=== PATIENT | male | born 1960 | race Caucasian/White ===

== ENCOUNTER 2019-09-25 18:03 | Emergency (ER) | payer MEDICARE, OTHER ==
[2019-09-25] MEDS ORDERED: predniSONE 20 MG TAB ONE (18:59)
== END 2019-09-25 19:12 | disposition home or self-care (01) ==
LOC: BURERS 18:03
DX: K12.2 Cellulitis and abscess of mouth (principal); E11.9 Type 2 diabetes mellitus without complications
CPT/HCPCS: 99284; J7512

== ENCOUNTER 2020-05-02 17:37 | Emergency (ER) | payer MEDICARE, OTHER ==
[2020-05-02 19:00] LABS: Bilirubin Negative (Negative); Blood, Urine Negative (Negative); Clarity Clear (Clear); Glucose, Urine (Dipstick) 500 mg/dL (Negative); Ketone, Urine 15 mg/dL (Negative); Leukocyte Negative (Negative); Nitrite Negative (Negative); Protein, Urine (Dipstick) Negative (Neg-Trace); Urobilinogen 0.2 mg/dL (Less than 2)
[2020-05-02 19:18] LABS: #Basophils 0.1 thou/uL (0.0-0.2); #Eosinphils 0.3 thou/uL (0.0-0.7); #Lymphocytes 2.2 thou/uL (1.20-3.40); #Monocytes 0.5 thou/uL (0.11-0.59); %Basophils 1.5 % (0.0-1.0); %Eosinophils 4.9 % (0.0-10.0); %Lymphocytes 35.5 % (21.0-51.0); %Monocytes 8.6 % (0.0-10.0); %Neutrophils 49.5 % (42.0-75.0); Hemoglobin 16.9 g/dL (14.0-18.0); Mean Corpuscular HGB CONC 33.7 g/dL (32.0-36.0); Mean Corpuscular Hemoglobin 31.3 pg (27.0-31.0); Mean Corpuscular Volume 92.8 fL (78.0-98.0); Mean Platelet Volume 8.2 fL (7.4-10.4); Platelet Count 137 thou/uL (130-400); RBC Distribution Width 12.9 % (11.5-14.5); Red Blood Cell (RBC) Count 5.41 mill/uL (4.70-6.10)
[2020-05-02 19:32] LABS: ALT (SGPT) 24 U/L (8-55); AST (SGOT) 23 U/L (5-34); Albumin 3.9 g/dL (3.4-4.8); Alkaline Phosphatase 98 U/L (40-110); Anion Gap 16 mmol/L (10-20); BUN (Urea Nitrogen) 18 mg/dL (8.4-25.7); Bilirubin, Total 0.3 mg/dL (0.2-1.2); Calc. Creatinine Clearance 0 mL/min (70-130); Calcium 8.9 mg/dL (7.8-10.44); Carbon Dioxide 24 mmol/L (23-31); Chloride 108 mmol/L (98-107); Globulin 3.5 g/dL (2.4-3.5); Glucose 266 mg/dL (80-115); Potassium 4.1 mmol/L (3.5-5.1); Protein, Total 7.4 g/dL (5.8-8.1); Sodium 144 mmol/L (136-145)
--- NOTE | 2020-05-02 19:48 | RAD ---
PORTABLE CHEST: 05/02/20 An AP portable film at 1928 is presented with no prior films available for comparison. No major infil trate or effusion was seen. The lungs are clear. It is difficult to assess the left costophrenic angl e well. There is no vascular congestion or edema. The heart size is normal. There appears to be part ial resection of the end of the left clavicle. IMPRESSION: No acute thoracic finding. POS: HOME
--- NOTE | 2020-05-02 20:02 | CT ---
CT OF THE BRAIN WITHOUT CONTRAST: 05/02/[address] was done for evaluation of headache and mental status changes. There is a history o f remote trauma with stroke. Today's exam shows extensive left frontal encephalomalacia from the prior stroke. No intracranial ble eding or extra-axial hematoma was present. there is normal ventricular sizes given the degree of atro phy present. No acute stroke, mass, bleeding, or other acute changes were seen. The visible paranasal sinuses and mastoid air cells are clear. IMPRESSION: Old left frontal stroke but no acute intracranial findings. Preliminary report called to Dr. Moore at 1937 on 05/02/20. POS: HOME
== END 2020-05-02 20:00 | disposition home or self-care (01) ==
LOC: BURERS 17:37
DX: R51.9 Headache, unspecified (principal); E11.9 Type 2 diabetes mellitus without complications
CPT/HCPCS: 36416; 70450; 71045; 80053; 81003; 83605; 84484; 85025; 93005; 36415-59

== ENCOUNTER 2020-05-17 17:07 | Emergency (ER) | payer MEDICARE | END 2020-05-17 17:37 | disposition home or self-care (01) | LOC: BURERS 17:07 | DX: B37.9 Candidiasis, unspecified (principal); E11.9 Type 2 diabetes mellitus without complications | CPT/HCPCS: 99283 ==

== ENCOUNTER 2020-05-28 14:42 | Emergency (ER) | payer MEDICARE, OTHER | END 2020-05-28 15:37 | disposition home or self-care (01) | LOC: BURERS 14:42 | DX: S49.92XA Unspecified injury of left shoulder and upper arm, initial encounter (principal); E11.9 Type 2 diabetes mellitus without complications; W01.0XXA Fall on same level from slipping, tripping and stumbling without subsequent striking against object, initial encounter | CPT/HCPCS: 70450 ==

== ENCOUNTER 2020-06-07 15:44 | Emergency (ER) | payer MEDICARE ==
[2020-06-07 16:35] LABS: #Eosinphils 0.1 thou/uL (0.0-0.7); #Lymphocytes 1.6 thou/uL (1.20-3.40); #Monocytes 0.7 thou/uL (0.11-0.59); %Basophils 0.6 % (0.0-1.0); %Eosinophils 1.9 % (0.0-10.0); %Lymphocytes 21.4 % (21.0-51.0); %Monocytes 9.2 % (0.0-10.0); %Neutrophils 66.9 % (42.0-75.0); Mean Corpuscular HGB CONC 32.6 g/dL (32.0-36.0); Mean Platelet Volume 7.7 fL (7.4-10.4); Platelet Count 91 thou/uL (130-400); RBC Distribution Width 12.4 % (11.5-14.5); Red Blood Cell (RBC) Count 5.67 mill/uL (4.70-6.10); White Blood Cell (WBC) Count 7.5 thou/uL (4.8-10.8)
[2020-06-07 16:47] LABS: Base Excess-Venous 0.8 mmol/L (-2.0 to 3.0); Bicarbonate (HCO3v) 27.2 mmol/L (22.0-28.0); CO2 Tension (PvCO2) 48.3 mmHg (42.0-51.0); Calcium, Ionized 1.12 mmol/L (1.15-1.33); Chloride 102 mmol/L (98-107); Hemoglobin - Calc 16.5 g/dL (14.0-18.0); Potassium 3.7 mmol/L (3.5-5.1); Sodium 139 mmol/L (138-145); T. Carbon Dioxide 28.7 mmol/L (22.0-28.0); vO2 Saturation-calc 80.1 % (60.0-85.0)
[2020-06-07 16:51] LABS: ALT (SGPT) 23 U/L (8-55); AST (SGOT) 18 U/L (5-34); Albumin 3.7 g/dL (3.4-4.8); Alkaline Phosphatase 116 U/L (40-110); Anion Gap 14 mmol/L (10-20); BUN (Urea Nitrogen) 14 mg/dL (8.4-25.7); Bilirubin, Total 0.5 mg/dL (0.2-1.2); Calc. Creatinine Clearance 0 mL/min (70-130); Calcium 8.6 mg/dL (7.8-10.44); Carbon Dioxide 26 mmol/L (23-31); Chloride 104 mmol/L (98-107); Glucose 357 mg/dL (80-115); Potassium 3.8 mmol/L (3.5-5.1); Protein, Total 6.7 g/dL (5.8-8.1); Sodium 140 mmol/L (136-145)
[2020-06-07 16:57] LABS: Large Platelets SLIGHT; MDiff Complete? YES
[2020-06-07 16:58] LABS: Platelet Morphology Comment Appears Decreased
[2020-06-07 17:33] LABS: Bilirubin Negative (Negative); Blood, Urine Negative (Negative); Clarity Clear (Clear); Glucose, Urine (Dipstick) >=1000 mg/dL (Negative); Ketone, Urine 40 mg/dL (Negative); Leukocyte Negative (Negative); Nitrite Negative (Negative); Protein, Urine (Dipstick) Negative (Neg-Trace); Specific Gravity, Urine 1.015 (1.005-1.030); Urobilinogen 0.2 mg/dL (Less than 2)
== END 2020-06-07 17:51 | disposition home or self-care (01) ==
LOC: BURERS 15:44
DX: S00.03XA Contusion of scalp, initial encounter (principal); E13.65 Other specified diabetes mellitus with hyperglycemia; W18.30XA Fall on same level, unspecified, initial encounter
CPT/HCPCS: 36416; 70450; 80053; 81003; 82330; 82803; 85025

== ENCOUNTER 2020-07-04 16:56 | Emergency (ER) | payer MEDICARE ==
[2020-07-04] MEDS ORDERED: Doxycycline 100 MG CAP ONE (17:47)
== END 2020-07-04 17:53 | disposition home or self-care (01) ==
LOC: BURERS 16:56
DX: G40.909 Epilepsy, unspecified, not intractable, without status epilepticus (principal); L02.212 Cutaneous abscess of back [any part, except buttock and flank]; E11.9 Type 2 diabetes mellitus without complications; Z86.73 Personal history of transient ischemic attack (TIA), and cerebral infarction without residual deficits
CPT/HCPCS: 99283

== ENCOUNTER 2020-08-02 18:12 | Emergency (ER) | payer MEDICARE ==
[2020-08-02] MEDS ORDERED: Insulin Regular 300 UNITS/3 ML VIAL ONE (19:09)
[2020-08-02 19:15] LABS: #Basophils 0.1 thou/uL (0.0-0.2); #Eosinphils 0.2 thou/uL (0.0-0.7); #Lymphocytes 2.6 thou/uL (1.20-3.40); #Monocytes 0.7 thou/uL (0.11-0.59); #Neutrophils 3.5 thou/uL (1.40-6.50); %Basophils 1.2 % (0.0-1.0); %Eosinophils 2.3 % (0.0-10.0); %Lymphocytes 37.1 % (21.0-51.0); %Monocytes 9.6 % (0.0-10.0); %Neutrophils 49.9 % (42.0-75.0); Hemoglobin 17.8 g/dL (14.0-18.0); Mean Corpuscular HGB CONC 34.2 g/dL (32.0-36.0); Mean Corpuscular Hemoglobin 31.1 pg (27.0-31.0); Mean Corpuscular Volume 90.8 fL (78.0-98.0); Mean Platelet Volume 8.7 fL (7.4-10.4); Platelet Count 153 thou/uL (130-400); RBC Distribution Width 12.9 % (11.5-14.5); Red Blood Cell (RBC) Count 5.73 mill/uL (4.70-6.10)
[2020-08-02 19:35] LABS: ALT (SGPT) 28 U/L (8-55); AST (SGOT) 24 U/L (5-34); Alkaline Phosphatase 119 U/L (40-110); Anion Gap 19 mmol/L (10-20); BUN (Urea Nitrogen) 9 mg/dL (8.4-25.7); Bilirubin, Total 0.4 mg/dL (0.2-1.2); Calc. Creatinine Clearance 0 mL/min (70-130); Carbon Dioxide 26 mmol/L (23-31); Chloride 104 mmol/L (98-107); Globulin 4.3 g/dL (2.4-3.5); Glucose 294 mg/dL (80-115); Potassium 4.2 mmol/L (3.5-5.1); Protein, Total 8.3 g/dL (5.8-8.1); Sodium 145 mmol/L (136-145)
[2020-08-02 19:45] LABS: Bilirubin Negative (Negative); Blood, Urine Negative (Negative); Clarity Clear (Clear); Ketone, Urine Negative (Negative); Leukocyte Negative (Negative); Nitrite Negative (Negative); Protein, Urine (Dipstick) Negative (Neg-Trace); Specific Gravity, Urine 1.015 (1.005-1.030); Urobilinogen 0.2 mg/dL (Less than 2)
[2020-08-02 19:48] LABS: Glucose, Urine (Dipstick) 500 mg/dL (Negative)
== END 2020-08-02 20:40 | disposition home or self-care (01) ==
LOC: BURERS 18:12
DX: G40.909 Epilepsy, unspecified, not intractable, without status epilepticus (principal); E11.65 Type 2 diabetes mellitus with hyperglycemia; R07.89 Other chest pain
CPT/HCPCS: 36416; 71045; 80053; 81003; 84484; 85025; 93005; 94760; 96374; 36415-59; J1815

== ENCOUNTER 2020-08-18 18:16 | Emergency (ER) | payer MEDICARE ==
[2020-08-18] MEDS ORDERED: Acetaminophen 500 MG TAB ONE (18:41)
== END 2020-08-18 18:50 | disposition home or self-care (01) ==
LOC: BURERS 18:16
DX: S90.31XA Contusion of right foot, initial encounter (principal); G81.94 Hemiplegia, unspecified affecting left nondominant side; W05.0XXA Fall from non-moving wheelchair, initial encounter

== ENCOUNTER 2020-08-29 11:42 | Emergency (ER) | payer MEDICARE ==
[2020-08-29 12:06] LABS: #Eosinphils 0.1 thou/uL (0.0-0.7); #Lymphocytes 2.3 thou/uL (1.20-3.40); #Monocytes 0.5 thou/uL (0.11-0.59); #Neutrophils 2.3 thou/uL (1.40-6.50); %Basophils 0.9 % (0.0-1.0); %Eosinophils 2.3 % (0.0-10.0); %Lymphocytes 43.8 % (21.0-51.0); %Monocytes 8.9 % (0.0-10.0); %Neutrophils 44.1 % (42.0-75.0); Hemoglobin 16.8 g/dL (14.0-18.0); Mean Corpuscular HGB CONC 33.2 g/dL (32.0-36.0); Mean Corpuscular Volume 90.5 fL (78.0-98.0); Mean Platelet Volume 7.8 fL (7.4-10.4); Platelet Count 137 thou/uL (130-400); RBC Distribution Width 12.8 % (11.5-14.5); Red Blood Cell (RBC) Count 5.58 mill/uL (4.70-6.10); White Blood Cell (WBC) Count 5.2 thou/uL (4.8-10.8)
[2020-08-29 12:21] LABS: ALT (SGPT) 20 U/L (8-55); AST (SGOT) 13 U/L (5-34); Albumin 3.5 g/dL (3.4-4.8); Alkaline Phosphatase 110 U/L (40-110); Anion Gap 16 mmol/L (10-20); BUN (Urea Nitrogen) 9 mg/dL (8.4-25.7); Bilirubin, Total 0.4 mg/dL (0.2-1.2); Calc. Creatinine Clearance 0 mL/min (70-130); Calcium 8.5 mg/dL (7.8-10.44); Carbon Dioxide 24 mmol/L (23-31); Chloride 102 mmol/L (98-107); Globulin 3.2 g/dL (2.4-3.5); Glucose 542 mg/dL (80-115); Potassium 4.4 mmol/L (3.5-5.1); Protein, Total 6.7 g/dL (5.8-8.1); Sodium 138 mmol/L (136-145)
[2020-08-29] MEDS ORDERED: Insulin Regular 300 UNITS/3 ML VIAL ONE (12:32)
== END 2020-08-29 14:49 | disposition home or self-care (01) ==
LOC: BURERS 11:42
DX: R55 Syncope and collapse (principal); E11.65 Type 2 diabetes mellitus with hyperglycemia
CPT/HCPCS: 36415; 36416; 72040; 80053; 85025; 96374; 96376; J1815